=== PATIENT | female | born 1985 | race Asian ===

== ENCOUNTER 2022-05-23 13:44 | Inpatient (IN) ==
[2022-05-23] MEDS ORDERED: OXYTOCIN 30 UNITS/500 ML BAG IV PRN ×2 (14:14)
[2022-05-23] MEDS ORDERED: LIDOCAINE 1% LOCAL 20 ML VIAL INFIL PRN (14:14)
[2022-05-23 14:42] LABS: Hematocrit (blood only) 33.5 % (34.1-44.9); Hemoglobin 11.5 g/dl (12.0-16.0); Mean Corpuscular Hemoglobin 30.4 pg (25.0-34.0); Mean Corpuscular Hgb Conc 34.3 g/dL (32.0-36.0); Mean Corpuscular Volume 88.6 fL (80.0-100.0); Mean Platelet Volume 11.5 fL (9.4-12.3); Platelet Count 186 K/uL (130-400); RDW Coefficient of Variation 13.6 % (11.5-14.5); RDW Standard Deviation 44.7 fL (36.4-46.3); Red Blood Count 3.78 M/uL (3.93-5.22); White Blood Count 7.06 K/ul (4.8-10.8)
[2022-05-23] MEDS: LACTATED RINGER'S 1,000 ML IV PRN ×2 (15:10→19:02)
--- NOTE | 2022-05-23 16:25 | History & Physical Report ---
Date of Service May 23, 2022 Assessment & Plan (1) Post-term , 40-42 weeks of gestation: Plan: IUP at 40w6d with unfavorable cervix for IOL . cervical balloon placed and pitocin to start now as well. epidural when requested antcipate vaginal . Admission and Anticipated Discharge Date Admission Date: May 23, 2022 History of Present Illness Primary Care Provider: NO PCP Patient is a 36 yo female EDC 05/17/22 who presents at 40w 6d for IOL because of post term . was complicated by AMA status and diet controlled GDM. GBS- negative. (+) bloody show since exam yesterday and some ctns as well. baby has been very active. Allergies Allergy/AdvReac Type Severity Reaction Status Date / Time No Known Allergies Allergy Verified 05/22/22 14:51 Home Medications Medication Instructions Recorded Confirmed Type prenat.vits,antonino,ltd-[id number]-vytbj 1 tab PO DAILY 09/14/21 05/23/22 History acetone (urine) test (Ketone Urine #50 ea 12/15/21 05/22/22 Rx Test strips) blood sugar diagnostic (OneTouch #150 ea 12/15/21 05/22/22 Rx Verio test strips) blood-glucose meter (OneTouch #1 ea 12/15/21 05/22/22 Rx Verio Reflect Meter) lancets 33 gauge (OneTouch Delica #150 ea 12/15/21 05/22/22 Rx Lancets) ferrous sulfate 325 mg (65 mg 325 mg PO 3XWK 05/23/22 05/23/22 History iron) capsule,extended release Patient History Medical History (Updated 05/23/22 @ 16:23 by Nathalie Dennis MD, FACOG) Pneumonia Stomach ulcer Surgical History No significant past surgical history Family History (Updated 09/14/21 @ 10:55 by Colette ROGERS, LELO) Father Hypertension Denies family history of Ovarian cancer Prostate cancer Diabetes Breast cancer Lung cancer Cancer Social History (Updated 09/14/21 @ 10:58 by Colette ROGERS, RN) Smoking Status: Never smoker Hx Alcohol Use: No Hx Substance Use: No Preferred Language: Chinese Communication Ability: Effective Electronic Organ Technician Required: No Beliefs That Will Affect Care: None marital status: marital status details: Tate Carmona (36) [phone] Current Living Situation: Spouse Current Living Situation Comment: FOB. 1 dog. current occupational status: unemployed Other Information That Helps Us Care for You: No Feels Safe at Home: Yes Safety Concerns: Feels Safe At This Time Review of Systems All systems reviewed & are unremarkable except as noted in HPI & below Physical Exam Constitutional: WD/WN, vitals as above Psychiatric: A+Ox3, euthymic affect Genitourinary: OB Exam Abdomen: + vertex, + estimated weight (6-7 pounds) and + irregular contractions Manual OB Exam: + cervical dilation fingertip, + cervical effacement 70% and + station -2 cervical balloon placed under direct visualization. 40cc of water instilled into the balloon and then placed on traction and attached to left thigh. patient tolerated procedure well. Results & Data ([facility]) Vital Signs (Past 12 Hours) Vital Signs Temp Pulse Resp BP Pulse Ox 05/23/22 14:12 98.1 F 20 05/23/22 15:50 60 05/23/22 15:50 112/69 05/23/22 14:29 99 05/23/22 14:29 73 05/23/22 14:24 100 05/23/22 14:24 74 05/23/22 14:19 100 05/23/22 14:19 78 05/23/22 14:14 99 05/23/22 14:14 75 05/23/22 14:09 99 05/23/22 14:09 73 05/23/22 14:04 77 99 05/23/22 13:59 77 99 Code Status & VTE Plan VTE Prophylaxis Plan VTE Prophylaxis will be ordered: No Coding Level of Care Code None Diagnoses Post-term , 40-42 weeks of gestation O48.0 CPT Codes Misx Procedure Codes - 67967 Placement of cervical dilator: 68167 Placement of cervical dilator ([id number])
[2022-05-24] MEDS: LACTATED RINGER'S 1,000 ML IV PRN ×3 (02:41→10:40)
--- NOTE | 2022-05-24 02:52 | Obstetrical Progress Note ---
Date of Service May 24, 2022 Assessment & Plan (1) Post-term , 40-42 weeks of gestation: Admission and Anticipated Discharge Date Admission Date: May 23, 2022 Subjective cervical balloon now expelled- pitocin at 15 milliunits FHR tracing- category 1 /ctns Q2-3 minutes mild/moderate cervix exam-4-5/80/-2 AROM clear fluid epidural when requested Review of Systems Review of Systems: All systems reviewed & are unremarkable except as noted in HPI & below Results & Data ([facility]) Vital Signs (Past 12 Hours) Vital Signs Temp Pulse Resp BP 05/24/22 02:43 18 05/24/22 02:43 97.9 F 18 05/24/22 02:12 57 L 114/64 05/24/22 01:07 63 18 120/73 05/24/22 00:06 18 05/24/22 00:06 18 05/24/22 00:07 65 104/59 L 05/23/22 23:22 81 05/23/22 23:22 126/66 05/23/22 22:30 18 05/23/22 22:30 18 05/23/22 22:30 70 05/23/22 22:30 120/74 05/23/22 21:01 18 05/23/22 21:01 18 05/23/22 21:02 74 05/23/22 21:02 122/76 05/23/22 20:00 18 05/23/22 20:00 18 05/23/22 20:01 69 05/23/22 20:01 115/70 05/23/22 19:00 18 05/23/22 19:00 98.2 F 18 05/23/22 19:00 70 05/23/22 19:00 111/62 05/23/22 18:05 65 05/23/22 18:05 105/55 L 05/23/22 17:00 18 05/23/22 17:00 18 05/23/22 17:01 62 05/23/22 17:01 100/61 05/23/22 15:50 60 05/23/22 15:50 112/69 PG Care Time/CCT Total # of Minutes Spent Total Time Spent with Patient: Total time spent is greater than 50% in coordination of care (as documented) at patient's floor/unit and/or counseling patient: Coding Level of Care Code None Diagnoses Post-term , 40-42 weeks of gestation O48.0
[2022-05-24] MEDS ORDERED: LIDOCAINE 2%/EPINEPHRINE 1:200,000 20 ML SDV ONE (07:24)
[2022-05-24] MEDS ORDERED: ePHEDrine sulfate 50 MG/ML AMP ONE (07:24)
[2022-05-24] MEDS ORDERED: fentaNYL citrate 100 MCG/2 ML VIAL ONE (07:24)
[2022-05-24] MEDS ORDERED: BUPIVACAINE 0.25% 30 ML VIAL ONE (07:24)
[2022-05-24] MEDS ORDERED: SODIUM CHLORIDE 0.9% INJ 10 ML VIAL ONE (07:24)
[2022-05-24] MEDS ORDERED: fentaNYL 2MCG/ML ROPIVACAINE 1.25MG/ML 100 ML BAG EPI ONE (07:25)
[2022-05-24] MEDS ORDERED: ONDANSETRON INJ 2 MG/ML 2 ML VIAL IV PRN (07:53)
[2022-05-24] MEDS ORDERED: NALOXONE HCL 1 MG in SODIUM CHLORIDE 0.9% 1000ML 1,000 ML IV PRN ×2 (07:53→16:36)
[2022-05-24] MEDS ORDERED: NALBUPHINE HCL INJ 10 MG/ML AMP IV PRN ×2 (07:53→16:36)
[2022-05-24] MEDS ORDERED: diphenhydrAMINE 50 MG/ML VIAL IV PRN ×2 (07:53→16:36)
[2022-05-24] MEDS ORDERED: ePHEDrine sulfate 50 MG/ML AMP IV PRN ×2 (07:53→16:36)
[2022-05-24] MEDS ORDERED: PROMETHAZINE HCL 6.25 MG in SODIUM CHLORIDE 0.9% 50 ML IV PRN (07:53)
[2022-05-24] MEDS ORDERED: NALOXONE HCL 0.4 MG/1 ML VIAL/CARP IV PRN ×2 (07:53→16:36)
--- NOTE | 2022-05-24 07:53 | Anesthesiology Consultation ---
Date of Service May 24, 2022 Assessment & Plan Chart Review Chart Review: Patient NOT seen in Pre Admission Testing and Acceptable Risk for Labor Epidural Consults Requested none ASA ASA2 Proposed Anesthesia Anesthesia Type: Labor Epidural Risk / Benefits Reviewed With: PT / POA / Parent / Guardian, Accepts Plan and Informed Consent Obtained History Height/Weight Height: 5 ft 1 in Weight: 58.06 kg Allergies Allergy/AdvReac Type Severity Reaction Status Date / Time No Known Allergies Allergy Verified 05/22/22 14:51 Medications Home Medications Medication Instructions Recorded Confirmed Last Taken prenat.vits,antonino,sah-ytdw-yyikb 1 tab PO DAILY 09/14/21 05/23/22 05/21/22 acetone (urine) test (Ketone Urine #50 ea 12/15/21 05/22/22 Unknown Test strips) blood sugar diagnostic (OneTouch #150 ea 12/15/21 05/22/22 Unknown Verio test strips) blood-glucose meter (OneTouch #1 ea 12/15/21 05/22/22 Unknown Verio Reflect Meter) lancets 33 gauge (OneTouch Delica #150 ea 12/15/21 05/22/22 Unknown Lancets) ferrous sulfate 325 mg (65 mg 325 mg PO 3XWK 05/23/22 05/23/22 05/21/22 iron) capsule,extended release Active Medications Generic Name Dose Route Start Last Admin Trade Name Freq PRN Reason Stop Dose Admin Lactated Ringer's 1,000 mls @ 125 mls/hr 05/23/22 14:14 05/24/22 07:39 Lr IV 05/25/22 14:13 999 mls/hr .Q8H PRN Administration L&D Protocol Protocol Oxytocin 30 units in 500 mls @ 19 mls/hr 05/23/22 14:14 05/24/22 06:00 Pitocin IV 05/25/22 14:13 1.14 units/hr .Q24H PRN 19 mls/hr Labor Induction/Augmentation Titration Protocol 1.14 UNITS/HR Past Medical History Medical History (Updated 05/23/22 @ 16:23 by Nathalie Dennis MD, FACOG) Pneumonia Stomach ulcer Exercise / Class Metabolic Activity II 4-5 Yardwork/Stairs/Walk up hill Past Family History Family History (Updated 09/14/21 @ 10:55 by Colette ROGERS RN) Father Hypertension Denies family history of Ovarian cancer Prostate cancer Diabetes Breast cancer Lung cancer Cancer Past Surgical History Surgical History No significant past surgical history Past Anesthesia History No Hx of Anesthesia Complications and No Family Hx of Anesthesia Complications History of PONV No Hx of PONV and No Hx of Motion Sickness Social History Smoking Status: Never smoker Hx Alcohol Use: No Hx Substance Use: No substance use type: does not use Physical Exam Vital Signs Last Vital Signs Temp 37.0 C 05/24/22 07:12 Pulse 76 05/24/22 07:49 Resp 18 05/24/22 05:06 BP 120/70 05/24/22 07:04 Pulse Ox 98 05/24/22 07:49 ENMT Mouth: no dentition abnormality Thyromental Distance: > or= 3.5 Finger Breadths Mallampati Class: II Neck normal visual inspection Respiratory normal respiratory effort Auscultation: lungs clear to auscultation bilaterally Cardiovascular Rate/Rhythm: regular rate and regular rhythm Psychiatric Orientation: alert Testing Laboratory Results 05/23/22 14:27 05/24/22 05/24/22 05/23/22 06:02 02:11 22:20 POC Glucose 81 87 78
--- NOTE | 2022-05-24 10:13 | Labor Progress Brief Note ---
Date of Service May 24, 2022 Signed over a call patient was 6 cm at 7 AM I have reassessed her at 10 AM and she is 6 cm there is some significant caput palpated as well cervix 90% contractions are definitely spaced appropriately at this stage and her Pitocin is at 19 milliunits/min I will reassess in 2 hours I did discuss the possibility of failure to progress in if there is no change ongoing but we will give her the best opportunity to deliver vaginally Assessment & Plan Admission and Anticipated Discharge Date Admission Date: May 23, 2022 Results & Data ([facility]) Vital Signs (Past 12 Hours) Vital Signs Temp Pulse Resp BP Pulse Ox 05/24/22 07:30 20 05/24/22 10:09 79 98 05/24/22 10:04 77 99 05/24/22 09:59 79 99 05/24/22 10:00 79 108/58 L 05/24/22 09:54 78 98 05/24/22 09:49 79 97 05/24/22 09:44 98 05/24/22 09:44 79 05/24/22 09:44 78 99/54 L 05/24/22 09:39 98.4 F 83 18 98 05/24/22 09:34 87 96 05/24/22 09:29 76 99/55 L 96 05/24/22 09:24 84 96 05/24/22 09:19 82 96 05/24/22 09:14 96 05/24/22 09:14 75 05/24/22 09:14 77 101/60 05/24/22 09:09 75 96 05/24/22 09:04 76 96 05/24/22 09:00 18 05/24/22 09:00 18 05/24/22 09:03 78 102/57 L 05/24/22 08:59 79 97 05/24/22 08:54 74 97 05/24/22 08:49 70 96 05/24/22 08:44 68 97 05/24/22 08:39 71 97 05/24/22 08:34 74 97 05/24/22 08:25 98.4 F 05/24/22 08:29 74 114/79 98 05/24/22 08:24 75 98 05/24/22 08:23 74 101/56 L 05/24/22 08:19 80 106/55 L 99 05/24/22 08:14 84 99 05/24/22 08:13 83 114/55 L 05/24/22 08:11 79 105/57 L 05/24/22 08:09 98 05/24/22 08:09 83 05/24/22 08:09 80 107/55 L 05/24/22 08:07 80 104/54 L 05/24/22 08:04 75 99 05/24/22 08:05 71 105/55 L 05/24/22 08:03 83 109/60 05/24/22 08:00 78 112/56 L 05/24/22 07:59 79 98 05/24/22 07:54 78 98 05/24/22 07:55 75 112/63 05/24/22 07:49 76 98 05/24/22 07:44 72 99 05/24/22 07:39 87 98 05/24/22 07:34 86 99 05/24/22 07:12 98.6 F 05/24/22 07:29 82 100 05/24/22 07:04 78 120/70 05/24/22 06:01 84 118/64 05/24/22 05:06 18 05/24/22 05:06 98.8 F 18 05/24/22 05:07 75 121/70 05/24/22 04:01 65 113/66 05/24/22 03:28 75 136/79 05/24/22 02:43 18 05/24/22 02:43 97.9 F 18 05/24/22 02:12 57 L 114/64 05/24/22 01:07 63 18 120/73 05/24/22 00:06 18 05/24/22 00:06 18 05/24/22 00:07 65 104/59 L 05/23/22 23:22 81 05/23/22 23:22 126/66 05/23/22 22:30 18 05/23/22 22:30 18 05/23/22 22:30 70 05/23/22 22:30 120/74 Coding Level of Care Code None
[2022-05-24] MEDS: fentaNYL 2MCG/ML ROPIVACAINE 1.25MG/ML 100 ML BAG EPI PRN ×2 (13:08→14:17)
[2022-05-24] MEDS ORDERED: NURSING L&D Epidural Breakthrough Pain Update ONE (13:26)
--- NOTE | 2022-05-24 14:21 | Labor Progress Brief Note ---
Date of Service May 24, 2022 Cervix still 6 cm with worsening of the swelling of the cervix still this same station I checked her during contraction there is minimal change of the cervix at this stage she has been 7 hours with the same cervical dilation while we do not have an IUPC I feel contractions are adequate and certainly timing interval are adequate. She has had a prolonged induction process and I have actually recommended section for her at this stage for failure to progress I discussed the risks including the risks of infection injury to internal organs deep vein thrombosis and pulmonary embolus we discussed continuing labor as well I discussed the risks of this including potential infection and harm to the fetus and the need for emergency if we continue on too long the patient would like to discuss with her privately and they will do this again my recommendation is a section at this stage risk benefits and alternatives discussed in depth Assessment & Plan Admission and Anticipated Discharge Date Admission Date: May 23, 2022 Results & Data ([facility]) Vital Signs (Past 12 Hours) Vital Signs Temp Pulse Resp BP Pulse Ox 05/24/22 10:45 98.6 F 05/24/22 07:30 20 05/24/22 14:00 20 05/24/22 14:00 05/24/22 14:14 74 97 05/24/22 14:09 83 97 05/24/22 14:04 82 97 05/24/22 13:59 78 97 05/24/22 13:58 74 113/59 L 05/24/22 13:54 82 96 05/24/22 13:49 77 96 05/24/22 13:44 96 05/24/22 13:44 77 05/24/22 13:44 76 105/55 L 05/24/22 13:39 75 96 05/24/22 13:34 81 97 05/24/22 13:29 96 05/24/22 13:29 76 05/24/22 13:29 75 103/58 L 05/24/22 13:24 80 97 05/24/22 13:15 98.4 F 05/24/22 13:06 16 05/24/22 13:06 98.2 F 16 05/24/22 13:19 76 97 05/24/22 12:30 16 05/24/22 12:30 16 05/24/22 13:14 77 97 05/24/22 13:13 75 110/59 L 05/24/22 13:09 75 97 05/24/22 13:04 84 98 05/24/22 13:00 77 20 99/55 L 05/24/22 12:59 77 97 05/24/22 12:54 81 96 05/24/22 12:49 82 98 05/24/22 12:44 80 98 05/24/22 12:43 77 95/52 L 05/24/22 12:39 79 97 05/24/22 12:34 76 98 05/24/22 12:29 86 91/52 L 98 05/24/22 12:24 76 97 05/24/22 12:15 98.2 F 05/24/22 12:19 79 97 05/24/22 12:14 80 97 05/24/22 12:13 82 107/57 L 05/24/22 12:09 80 97 05/24/22 12:04 86 98 05/24/22 11:59 79 119/68 97 05/24/22 11:54 83 97 05/24/22 11:49 88 97 05/24/22 11:44 83 96 05/24/22 11:45 85 118/69 05/24/22 11:39 75 96 05/24/22 11:34 80 96 05/24/22 11:29 83 97 05/24/22 11:28 82 120/69 05/24/22 11:24 76 96 05/24/22 11:19 76 96 05/24/22 11:14 79 97 05/24/22 11:13 73 105/59 L 05/24/22 11:09 86 97 05/24/22 11:04 78 97 05/24/22 10:59 78 97 05/24/22 11:00 78 18 109/57 L 05/24/22 10:55 98.6 F 05/24/22 10:54 85 97 05/24/22 10:49 72 98 05/24/22 10:44 73 98 05/24/22 10:43 70 119/68 05/24/22 10:39 81 99 05/24/22 10:34 85 98 05/24/22 10:29 82 98 05/24/22 10:28 79 118/67 05/24/22 10:24 82 98 05/24/22 10:19 80 98 05/24/22 10:14 87 97 05/24/22 10:13 82 114/64 05/24/22 10:09 79 98 05/24/22 10:04 77 99 05/24/22 09:59 79 99 05/24/22 10:00 79 18 108/58 L 05/24/22 09:54 78 98 05/24/22 09:49 79 97 05/24/22 09:44 98 05/24/22 09:44 79 05/24/22 09:44 78 99/54 L 05/24/22 09:39 98.4 F 83 18 98 05/24/22 09:34 87 96 05/24/22 09:29 76 99/55 L 96 05/24/22 09:24 84 96 05/24/22 09:19 82 96 05/24/22 09:14 96 05/24/22 09:14 75 05/24/22 09:14 77 101/60 05/24/22 09:09 75 96 05/24/22 09:04 76 96 05/24/22 09:00 18 05/24/22 09:00 18 05/24/22 09:03 78 102/57 L 05/24/22 08:59 79 97 05/24/22 08:54 74 97 05/24/22 08:49 70 96 05/24/22 08:44 68 97 05/24/22 08:39 71 97 05/24/22 08:34 74 97 05/24/22 08:25 98.4 F 05/24/22 08:29 74 114/79 98 05/24/22 08:24 75 98 05/24/22 08:23 74 101/56 L 05/24/22 08:19 80 106/55 L 99 05/24/22 08:14 84 99 05/24/22 08:13 83 114/55 L 05/24/22 08:11 79 105/57 L 05/24/22 08:09 98 05/24/22 08:09 83 05/24/22 08:09 80 107/55 L 05/24/22 08:07 80 104/54 L 05/24/22 08:04 75 99 05/24/22 08:05 71 105/55 L 05/24/22 08:03 83 109/60 05/24/22 08:00 78 112/56 L 05/24/22 07:59 79 98 05/24/22 07:54 78 98 05/24/22 07:55 75 112/63 05/24/22 07:49 76 98 05/24/22 07:44 72 99 05/24/22 07:39 87 98 05/24/22 07:34 86 99 05/24/22 07:12 98.6 F 05/24/22 07:29 82 100 05/24/22 07:04 78 120/70 05/24/22 06:01 84 118/64 05/24/22 05:06 18 05/24/22 05:06 98.8 F 18 05/24/22 05:07 75 121/70 05/24/22 04:01 65 113/66 05/24/22 03:28 75 136/79 05/24/22 02:43 18 05/24/22 02:43 97.9 F 18 Coding Level of Care Code None
[2022-05-24] MEDS ORDERED: ceFAZolin 2000MG 2,000 MG/15 ML SYR IV SCH (14:45)
[2022-05-24] MEDS ORDERED: LACTATED RINGER'S 1,000 ML IV SCH ×2 (14:45→16:30)
[2022-05-24] MEDS ORDERED: CITRIC ACID/SODIUM CITRATE 15 ML UDC ONE (14:56)
[2022-05-24] MEDS ORDERED: OXYTOCIN 10 UNITS/ML VIAL ONE (15:13)
[2022-05-24] MEDS ORDERED: MoRPHine SULFATE PF 1 MG/ML 10 ML AMP/VIAL ONE (15:13)
[2022-05-24] MEDS ORDERED: KETOROLAC 30 MG/ML VIAL ONE (15:13)
[2022-05-24] MEDS ORDERED: ONDANSETRON INJ 2 MG/ML 2 ML VIAL ONE (15:13)
[2022-05-24] MEDS ORDERED: OXYTOCIN 10 UNITS/ML 10ML VIAL ONE ×3 (15:39)
[2022-05-24 16:17] LABS: Base Excess Cord Arterial Bld -6.1 mEq/L (-9-1.8); Base Excess Cord Venous Blood -6.9 mEq/L (-7.7-1.9); CO2 Cord Arterial Blood 47 mmHg (39.1-73.5); Cord Venous Blood HCO3 19 mmol/L (18.4-26.8); Cord Venous Blood PCO2 36 mmHg (30.4-57.2); Cord Venous Blood PO2 28 mmHg (14.1-43.3); Cord Venous Blood pH 7.32 (7.20-7.44); HCO3 Cord Arterial Blood 21 mmol/L (19.7-28.5); O2 Saturation Cord Venous Bld < 60.0 % (<68); Oxygen Sat Cord Arterial Blood < 60.0 % (<60); PO2 Cord Arterial Blood 23 mmHg (4.1-31.7); pH Cord Arterial Blood 7.26 (7.1-7.38)
[2022-05-24] MEDS ORDERED: KETOROLAC 30 MG/ML VIAL IV PRN ×2 (16:23→16:36)
[2022-05-24] MEDS ORDERED: MAGNESIUM HYDROXIDE SUSP 30 ML UDC PO PRN ×2 (16:23→20:41)
[2022-05-24] MEDS ORDERED: SENNA 8.6 MG TAB PO PRN ×2 (16:23→20:41)
[2022-05-24] MEDS ORDERED: IBUPROFEN 600 MG TAB PO PRN (16:23)
[2022-05-24] MEDS ORDERED: HYDROCORTISONE ACETATE 25 MG SUPP PR PRN ×2 (16:23→20:41)
[2022-05-24] MEDS ORDERED: DIPHTHERIA/TETANUS/PERTUSSIS 0.5 ML SYR/VIAL IM ONE ×2 (16:23→20:41)
[2022-05-24] MEDS ORDERED: MEPERIDINE HCL 50 MG/ML CARP IV PRN (16:23)
[2022-05-24] MEDS ORDERED: oxyCODONE/ACETAMINOPHEN 5mg/325mg TAB PO PRN (16:23)
[2022-05-24] MEDS ORDERED: BENZOCAINE 20% AER SPR 82.5 GM CAN EXT PRN ×2 (16:23→20:41)
--- NOTE | 2022-05-24 16:24 | Operative Report ---
PG Post Operative Report Pre & Post Diagnosis Operation Date: 05/24/22 14:45 <No data on this case meets the specified criteria> I identified the patient and participated in the time-out.: Yes Procedure Operation Date: 05/24/22 14:45 Actual Procedures p Section in LD with live female child at 1554(Not Applicable) - Prudencio Whitifeld MD, FACOG Surgeon Prudencio Whitfield MD, FACOG Hand Tube Winder Dr. Lieberman Estimated Blood Loss 500 Findings Consistent with Post-Op Diagnosis Specimens cord gases, blood Description of Procedure Regional anesthetic had been given by anesthesia patient was prepped and draped with a leftward tilt preoperative antibiotics had been given in appropriate timing by anesthesiology. Note she did have an epidural however this was not enough of a block so a spinal was then performed by anesthesia and this was adequate Once the prep was allowed to fully dry timeout was performed. Pickups with teeth were used to test the incision area was found to be adequate for incision as the patient did not feel sharp pain. Scalpel was used to make a Pfannenstiel incision on the lower abdomen. We then cut through the subcutaneous fat down to the level of the anterior rectus sheath fascia this was cut in the midline and then extended laterally with the curved Brown scissors. At this stage we then placed 2 Annia clamps on the anterior aspect of the fascia. Using the curved Brown's we are able to dissect the fascia superiorly away from the rectus muscles. Care was taken to maintain hemostasis. Annia clamps were then placed to the inferior aspect of the anterior sheath of the fascia. Fascia was then dissected away from the rectus muscles inferiorly towards the pubic bone. A Annia was then placed in the midline both inferiorly and superiorly. This was to allow exposure by retraction rectus muscles were in the midline with were then able to cut through the peritoneum and then enter the peritoneal cavity. Opening was enlarged to allow exposure of the peritoneal cavity both superiorly and inferiorly. Once adequate space was obtained a bladder retractor was placed to expose the lower segment Metzenbaums were used to dissect the bladder flap inferiorly away from the uterus. This was done sharply bladder retractor was then repositioned to expose the lower segment of the uterus Fresh scalpel was used to make a low transverse incision on the uterus. Uterus was then entered bluntly with the operators finger, membranes ruptured and the opening was enlarged using the operators fingers bluntly pulling superiorly and inferiorly to allow exposure. Thick meconium was noted there was no nuchal cord should be noted the adnexa are within normal limits Baby was delivered by first flexion of the head elevation of the head out of the pelvis and then pressure by the physical therapist assistant on the maternal abdomen. Baby's head was then delivered mouth and then nares were suctioned and then using gentle traction the baby was fully delivered. Live vigorous infant. Fluid was clear cord clamped and cut cord gases obtained cord blood obtained baby handed to pediatrics. Placenta removed was removed with traction we ensure the entire placenta was removed with a moist lap sponge into the uterus Uterus was then exteriorized. IV Pitocin had been started by anesthesia tone improved there were no extensions the uterus was then closed using 0 Monocryl in a 2 layer closure the first layer closed in a running locked fashion from left to right and then a second closure from left to right in a running nonlocked fashion. At this stage hemostasis was excellent. Uterus was placed back in the peritoneal cavity with suction irrigation out and inspection of the uterus at this stage revealed excellent hemostasis Retractors were removed urine color was clear at this stage of the case we inspected the rectus muscles they were hemostatic fascia was closed with 0 Vicryl subcutaneous fat was irrigated and closed with 3-0 Vicryl skin closed with 4-0 subcuticular Monocryl I attest to the content of the Intraoperative Record and any orders documented therein. Any exceptions are noted below. OB Procedure Charges 82671
[2022-05-24] MEDS ORDERED: OXYTOCIN 20 UNITS in LACTATED RINGER'S 1,000 ML IV SCH (16:30)
--- NOTE | 2022-05-24 16:35 | Anesthesia Procedure Note ---
Date of Service May 24, 2022 Anesthesia Post Epidural Note Vital Signs Vital Signs: Temp Pulse Resp BP Pulse Ox 36.9 C 100 H 20 115/53 L 98 05/24/22 13:15 05/24/22 16:33 05/24/22 14:00 05/24/22 16:33 05/24/22 16:28 Pain Intensity Abdomen: Pain Intensity: 4 Notes Mental Status: alert / awake / arousable Nausea / Vomiting: adequately controlled Pain: adequately controlled Airway Patency, RR, SpO2: stable & adequate BP & HR: stable & adequate Hydration State: stable & adequate Neuraxial Anesthesia: was administered and sensory block is resolving Anesthetic Complications: no major complications apparent and Pt Satisfied with anesthetic care Epidural: Removed without complications and With tip intact
[2022-05-24] MEDS ORDERED: MEPERIDINE HCL 25 MG/ML CARP/VIAL IV PRN (16:36)
[2022-05-24] MEDS ORDERED: MoRPHine SULFATE PF 1 MG/ML 10 ML AMP/VIAL INT SPINAL ONE (16:36)
[2022-05-24] MEDS ORDERED: LACTATED RINGER'S 500 ML IV PRN (16:36)
[2022-05-24] MEDS ORDERED: NALOXONE HCL 0.08 MG in SYRINGE 1.8 ML IV PRN (16:36)
[2022-05-24] MEDS ORDERED: HYDROmorphone INJ 0.5 MG/0.5 ML SYR IV PRN (16:36)
[2022-05-24] MEDS ORDERED: MoRPHine SULFATE 2 MG/ML CARP IV PRN (16:36)
--- NOTE | 2022-05-24 16:39 | Anesthesiology Progress Note ---
Date of Service May 24, 2022 Anesthesia Post Procedure Vital Signs Vital Signs: Temp Pulse Resp BP Pulse Ox 05/24/22 10:45 37.0 C 05/24/22 07:30 20 05/24/22 16:33 98 05/24/22 16:33 97 H 05/24/22 16:33 100 H 115/53 L 05/24/22 16:28 97 H 98 05/24/22 15:09 78 98 05/24/22 15:04 90 97 05/24/22 14:59 88 97 05/24/22 14:58 77 117/59 L 05/24/22 14:54 82 97 05/24/22 14:49 74 97 05/24/22 14:44 77 119/59 L 96 05/24/22 14:39 75 97 05/24/22 14:34 78 98 05/24/22 14:29 72 122/66 97 05/24/22 14:24 77 97 05/24/22 14:19 77 97 05/24/22 14:00 20 05/24/22 14:00 20 05/24/22 14:14 74 97 05/24/22 14:09 83 97 05/24/22 14:04 82 97 05/24/22 13:59 78 97 05/24/22 13:58 74 113/59 L 05/24/22 13:54 82 96 05/24/22 13:49 77 96 05/24/22 13:44 96 05/24/22 13:44 77 05/24/22 13:44 76 105/55 L 05/24/22 13:39 75 96 05/24/22 13:34 81 97 05/24/22 13:29 96 05/24/22 13:29 76 05/24/22 13:29 75 103/58 L 05/24/22 13:24 80 97 05/24/22 13:15 36.9 C 05/24/22 13:06 16 05/24/22 13:06 36.8 C 16 05/24/22 13:19 76 97 05/24/22 12:30 16 05/24/22 12:30 16 05/24/22 13:14 77 97 05/24/22 13:13 75 110/59 L 05/24/22 13:09 75 97 05/24/22 13:04 84 98 05/24/22 13:00 77 20 99/55 L 05/24/22 12:59 77 97 05/24/22 12:54 81 96 05/24/22 12:49 82 98 05/24/22 12:44 80 98 05/24/22 12:43 77 95/52 L 05/24/22 12:39 79 97 05/24/22 12:34 76 98 05/24/22 12:29 86 91/52 L 98 05/24/22 12:24 76 97 05/24/22 12:15 36.8 C 05/24/22 12:19 79 97 05/24/22 12:14 80 97 05/24/22 12:13 82 107/57 L 05/24/22 12:09 80 97 05/24/22 12:04 86 98 05/24/22 11:59 79 119/68 97 05/24/22 11:54 83 97 05/24/22 11:49 88 97 05/24/22 11:44 83 96 05/24/22 11:45 85 118/69 05/24/22 11:39 75 96 05/24/22 11:34 80 96 05/24/22 11:29 83 97 05/24/22 11:28 82 120/69 05/24/22 11:24 76 96 05/24/22 11:19 76 96 05/24/22 11:14 79 97 05/24/22 11:13 73 105/59 L 05/24/22 11:09 86 97 05/24/22 11:04 78 97 05/24/22 10:59 78 97 05/24/22 11:00 78 18 109/57 L 05/24/22 10:55 37.0 C 05/24/22 10:54 85 97 05/24/22 10:49 72 98 05/24/22 10:44 73 98 05/24/22 10:43 70 119/68 05/24/22 10:39 81 99 05/24/22 10:34 85 98 05/24/22 10:29 82 98 05/24/22 10:28 79 118/67 05/24/22 10:24 82 98 05/24/22 10:19 80 98 05/24/22 10:14 87 97 05/24/22 10:13 82 114/64 05/24/22 10:09 79 98 05/24/22 10:04 77 99 05/24/22 09:59 79 99 05/24/22 10:00 79 18 108/58 L 05/24/22 09:54 78 98 05/24/22 09:49 79 97 05/24/22 09:44 98 05/24/22 09:44 79 05/24/22 09:44 78 99/54 L 05/24/22 09:39 36.9 C 83 18 98 05/24/22 09:34 87 96 05/24/22 09:29 76 99/55 L 96 05/24/22 09:24 84 96 05/24/22 09:19 82 96 05/24/22 09:14 96 05/24/22 09:14 75 05/24/22 09:14 77 101/60 05/24/22 09:09 75 96 05/24/22 09:04 76 96 05/24/22 09:00 18 05/24/22 09:00 18 05/24/22 09:03 78 102/57 L 05/24/22 08:59 79 97 05/24/22 08:54 74 97 05/24/22 08:49 70 96 05/24/22 08:44 68 97 05/24/22 08:39 71 97 05/24/22 08:34 74 97 05/24/22 08:25 36.9 C 05/24/22 08:29 74 114/79 98 05/24/22 08:24 75 98 05/24/22 08:23 74 101/56 L 05/24/22 08:19 80 106/55 L 99 05/24/22 08:14 84 99 05/24/22 08:13 83 114/55 L 05/24/22 08:11 79 105/57 L 05/24/22 08:09 98 05/24/22 08:09 83 05/24/22 08:09 80 107/55 L 05/24/22 08:07 80 104/54 L 05/24/22 08:04 75 99 05/24/22 08:05 71 105/55 L 05/24/22 08:03 83 109/60 05/24/22 08:00 78 112/56 L 05/24/22 07:59 79 98 05/24/22 07:54 78 98 09/15/22 07:55 75 112/63 05/24/22 07:49 76 98 05/24/22 07:44 72 99 05/24/22 07:39 87 98 05/24/22 07:34 86 99 05/24/22 07:12 37.0 C 05/24/22 07:29 82 100 05/24/22 07:04 78 120/70 05/24/22 06:01 84 118/64 05/24/22 05:06 18 05/24/22 05:06 37.1 C 18 05/24/22 05:07 75 121/70 05/24/22 04:01 65 113/66 05/24/22 03:28 75 136/79 05/24/22 02:43 18 05/24/22 02:43 36.6 C 18 05/24/22 02:12 57 L 114/64 05/24/22 01:07 63 18 120/73 05/24/22 00:06 18 05/24/22 00:06 18 05/24/22 00:07 65 104/59 L 05/23/22 23:22 81 05/23/22 23:22 126/66 05/23/22 22:30 18 05/23/22 22:30 18 05/23/22 22:30 70 05/23/22 22:30 120/74 05/23/22 21:01 18 05/23/22 21:01 18 05/23/22 21:02 74 05/23/22 21:02 122/76 05/23/22 20:00 18 05/23/22 20:00 18 05/23/22 20:01 69 05/23/22 20:01 115/70 05/23/22 19:00 18 05/23/22 19:00 36.8 C 18 05/23/22 19:00 70 05/23/22 19:00 111/62 05/23/22 18:05 65 05/23/22 18:05 105/55 L 05/23/22 17:00 18 05/23/22 17:00 18 05/23/22 17:01 62 05/23/22 17:01 100/61 Pain Intensity Abdomen: Pain Intensity: 4 Transfer of Care Handoff Completed per policy Notes Mental Status: alert / awake / arousable Nausea / Vomiting: adequately controlled Pain: adequately controlled Airway Patency, RR, SpO2: stable & adequate BP & HR: stable & adequate Hydration State: stable & adequate Neuraxial Anesthesia: was administered and sensory block is resolving Anesthetic Complications: no major complications apparent and Pt Satisfied with anesthetic care
[2022-05-24] MEDS ORDERED: SODIUM CHLORIDE 0.9% 1000ML 1,000 ML IV SCH (16:45)
[2022-05-24] MEDS ORDERED: DC INTRASPINAL MORPHINE SCH (16:45)
[2022-05-24] MEDS ORDERED: NO NARCOTICS OR SEDATIVES SCH (16:45)
[2022-05-24] MEDS ORDERED: SIMETHICONE 80 MG CHEW PO SCH (17:00)
[2022-05-24] MEDS ORDERED: DOCUSATE SODIUM 100 MG CAP PO SCH (21:00)
[2022-05-24] MEDS: SIMETHICONE 80 MG CHEW PO SCH (21:17)
[2022-05-24] MEDS: DOCUSATE SODIUM 100 MG CAP PO SCH (21:17)
[2022-05-25] MEDS: OXYTOCIN 20 UNITS in LACTATED RINGER'S 1,000 ML IV SCH (01:42)
[2022-05-25] MEDS ORDERED: CITRIC ACID/SODIUM CITRATE 15 ML UDC PO SCH (06:00)
[2022-05-25 06:30] LABS: Basophils # (auto) 0.03 K/uL (0-0.2); Basophils % (auto) 0.2 %; Eosinophils # (auto) 0.02 K/uL (0-0.50); Eosinophils % (auto) 0.1 %; Hematocrit (blood only) 26.9 % (34.1-44.9); Hemoglobin 9.4 g/dl (12.0-16.0); Immature Granulocytes # (auto) 0.06 K/uL (0.00-0.02); Immature Granulocytes % (auto) 0.4 %; Lymphocytes # (auto) 1.31 K/uL (1.2-3.4); Lymphocytes % (auto) 8.9 %; Mean Corpuscular Hemoglobin 30.8 pg (25.0-34.0); Mean Corpuscular Hgb Conc 34.9 g/dL (32.0-36.0); Mean Corpuscular Volume 88.2 fL (80.0-100.0); Mean Platelet Volume 11.1 fL (9.4-12.3); Monocytes # (auto) 0.85 K/uL (0.24-0.82); Monocytes % (auto) 5.8 %; Neutrophils # (auto) 12.45 K/uL (1.4-6.5); Neutrophils % (auto) 84.6 %; Platelet Count 154 K/uL (130-400); RDW Coefficient of Variation 13.8 % (11.5-14.5); RDW Standard Deviation 45.1 fL (36.4-46.3); Red Blood Count 3.05 M/uL (3.93-5.22); White Blood Count 14.72 K/ul (4.8-10.8)
--- NOTE | 2022-05-25 07:12 | Obstetrical Progress Note ---
Date of Service <Samy CarpioSue MioDO - Last Filed: 05/25/22 07:12> May 25, 2022 Assessment & Plan <Samy LiebermanDO - Last Filed: 05/25/22 07:12> (1) Encounter for care and examination after delivery: (2) Status post section: Plan - Feels well today. - Will continue to advance diet, remove Bernstein, and get patient up and moving. - Patient has no past gas or had a BM but has not eaten food in a long time. No concerns on ab examination. Will continue to monitor but no intervention needed at this time. - Pain well controlled with ibuprofen 600mg Q4H PRN - Routine care -- OOB, ambulation, diet progression as tolerated - After discharge will have 6 week follow-up with Dr. Whitfield <Prudencio Whitfield MD, FACOG - Last Filed: 05/25/22 07:19> (1) Encounter for care and examination after delivery: (2) Status post section: Subjective <Samy CarpioSue Lieberman DO - Last Filed: 05/25/22 07:12> Ambulation: limited ambulation Voiding: bernstein catheter in place Passing Gas:: No Diet Tolerance:: clear liquids Lochia:: Small Feeding Type:: breast feeding Current Pain Level(1-10): 0 Patient is a 36 y/o female who is POD #1 following delivery at 40 weeks 6 days. She reports feeling well overall this morning. No abdominal cramping & 0/10 pain well managed on analgesics. Bernstein in place. Tolerating m eals overnight and able to ambulate some. Has not pass gas or had a bowel movement. Has some persistent lochia with some improvement this morning. Currently breast feeding. Review of Systems Denies fever, chills, sweats Denies shortness of breath, difficulty breathing, chest pain, palpitations, chest pressure. Denies breast pain. Denies dysuria. Denies headache or changes in vision. Physical Exam <Samy CarpioSue Lieberman DO - Last Filed: 05/25/22 07:12> General: Alert, oriented. No acute distress. Cardiac: Regular rate and rhythm, no murmurs/rubs/gallops. Respiratory: Clear to auscultation bilaterally a/p, no wheezes/rales/rhonchi. No increased work of breathing. Symmetrical chest rise. No respiratory distress. Abdomen: Soft, nontender, nondistended. Bowel sounds present. Uterus: Uterine fundus firm, palpable below umbilicus. Lower Extremities: No lower extremity edema or swelling. No deep calf pain. Edwar's negative bilaterally. Results & Data ([facility]) <Samy Lieberman DO - Last Filed: 05/25/22 07:12> Vital Signs (Past 12 Hours) Vital Signs Temp Pulse Resp BP Pulse Ox O2 Del Method 05/25/22 06:50 16 98 05/25/22 05:50 16 97 05/25/22 04:50 16 97 05/25/22 03:50 16 98 05/25/22 02:50 16 97 05/25/22 01:50 16 99 05/25/22 00:50 16 98 05/25/22 03:39 37.8 C H 88 18 99/61 L 99 Room Air 05/24/22 23:50 17 99 05/24/22 22:00 18 98 05/24/22 21:00 18 99 05/24/22 20:00 18 98 05/24/22 22:53 37 C 77 18 95/60 L 98 Room Air <Prudencio Whitfield MD, FACOG - Last Filed: 05/25/22 07:19> Co-Signing Physician Notes Resident Physician Supervision Note: I was present with Dr. Lieberman during the history and exam. I discussed the case with the resident and agree with the findings and plan as documented in the note. Any exceptions or clarifications are listed here: [None] Documented By: Prudencio Whitfield MD, FACOG Resident Activity Tracking <Samy Lieberman DO - Last Filed: 05/25/22 07:12> Resident Involvement: Resident Care Provided Care Provided: OB Delivery
[2022-05-25] MEDS: SIMETHICONE 80 MG CHEW PO SCH ×4 (07:34→20:59)
[2022-05-25] MEDS: DOCUSATE SODIUM 100 MG CAP PO SCH ×2 (07:34→20:59)
[2022-05-25] MEDS: PRENATAL VITAMIN 1 TAB PO SCH (07:34)
[2022-05-25] MEDS: FERROUS SULFATE 325 MG TAB PO SCH (07:34)
[2022-05-25] MEDS ORDERED: FERROUS SULFATE 325 MG TAB PO SCH (08:00)
[2022-05-25] MEDS ORDERED: PRENATAL VITAMIN 1 TAB PO SCH (08:00)
[2022-05-25] MEDS ORDERED: MEPERIDINE HCL 50 MG/ML CARP IV PRN (10:36)
[2022-05-25] MEDS ORDERED: diphenhydrAMINE 50 MG/ML VIAL IV PRN ×2 (10:36)
[2022-05-25] MEDS ORDERED: diphenhydrAMINE Capsule 25 MG CAP PO PRN ×2 (10:36)
[2022-05-25] MEDS ORDERED: PROMETHAZINE HCL 25 MG in SODIUM CHLORIDE 0.9% 50 ML IV PRN (10:36)
[2022-05-25] MEDS ORDERED: KETOROLAC 30 MG/ML VIAL IV PRN ×2 (10:36)
[2022-05-25] MEDS ORDERED: ONDANSETRON INJ 2 MG/ML 2 ML VIAL IV PRN ×2 (10:36)
[2022-05-25] MEDS ORDERED: oxyCODONE/ACETAMINOPHEN 5mg/325mg TAB PO PRN (10:36)
[2022-05-25] MEDS: oxyCODONE/ACETAMINOPHEN 5mg/325mg TAB PO PRN ×2 (11:07→17:44)
[2022-05-25] MEDS: IBUPROFEN 600 MG TAB PO PRN ×2 (11:07→17:43)
[2022-05-25] MEDS ORDERED: bisacodyL 5 MG TABEC PO SCH ×2 (20:00)
[2022-05-26] MEDS: oxyCODONE/ACETAMINOPHEN 5mg/325mg TAB PO PRN ×4 (01:07→18:34)
[2022-05-26] MEDS: IBUPROFEN 600 MG TAB PO PRN ×4 (01:07→18:34)
--- NOTE | 2022-05-26 07:18 | Obstetrical Progress Note ---
Date of Service <Samy CarpioSue Lieberman DO - Last Filed: 05/26/22 07:19> May 26, 2022 Assessment & Plan <Samy CarpioSue Lieberman DO - Last Filed: 05/26/22 07:19> (1) Encounter for care and examination after delivery: (2) Status post section: Plan - Feels well today. Eating well, voiding well, ambulating well. - Pain well controlled with [ibuprofen 600mg Q4H PRN] - Routine care -- OOB, ambulation, diet progression as tolerated - After discharge will have 6 week follow-up with Dr. Whitfield - Most likely D/C tomorrow but if patient feels good throughout the day and has no issues may be D/C tonight. <Jane Smiley MD - Last Filed: 05/26/22 07:48> (1) Encounter for care and examination after delivery: (2) Status post section: Subjective <Samyryan Lieberman DO - Last Filed: 05/26/22 07:19> Ambulation: ambulating normally Voiding: no voiding problems Passing Gas:: Yes Diet Tolerance:: regular diet Lochia:: Small Feeding Type:: breast feeding Current Pain Level(1-10): 0 Patient is a 36 y/o female who is POD #2 following delivery at 40.6 weeks. She reports feeling well overall this morning. No abdominal cramping & 0/10 pain well managed on analgesics. Voiding well. Tolerating meals overnight and able to ambulate some. Able to pass gas. Has some persistent lochia with some improvement this morning. Currently breast feeding. Review of Systems Denies fever, chills, sweats Denies shortness of breath, difficulty breathing, chest pain, palpitations, chest pressure. Denies breast pain. Denies dysuria. Denies headache or changes in vision. Physical Exam <Samyryan Lieberman DO - Last Filed: 05/26/22 07:19> General: Alert, oriented. No acute distress. Cardiac: Regular rate and rhythm, no murmurs/rubs/gallops. Respiratory: Clear to auscultation bilaterally a/p, no wheezes/rales/rhonchi. No increased work of breathing. Symmetrical chest rise. No respiratory distress. Abdomen: Soft, nontender, nondistended. Bowel sounds present. Uterus: Uterine fundus firm, palpable below umbilicus. Lower Extremities: No lower extremity edema or swelling. No deep calf pain. Edwar's negative bilaterally. Results & Data ([facility]) <Samy Lieberman DO - Last Filed: 05/26/22 07:19> Vital Signs (Past 12 Hours) Vital Signs Temp Pulse Pulse Resp BP O2 Del Method 05/26/22 01:00 36.7 C 66 14 94/59 L Room Air 05/25/22 20:50 36.6 C 71 71 16 95/59 L Room Air <Jane Smiley MD - Last Filed: 05/26/22 07:48> Co-Signing Physician Notes Resident Physician Supervision Note: I interviewed and examined the patient. Discussed with Dr. Lieberman and agree with findings and plan as documented in the note. Any exceptions or clarifications are listed here: POD2 s/p pCS, doing well. Unsure if desires dc home today or tomorrow, ok for today if desires Documented By: Jane Smiley MD Resident Activity Tracking <Samy Lieberman DO - Last Filed: 05/26/22 07:19> Resident Involvement: Resident Care Provided Care Provided: OB Delivery
[2022-05-26] MEDS: OXYTOCIN 20 UNITS in LACTATED RINGER'S 1,000 ML IV SCH (07:27)
[2022-05-26 07:36] LABS: Hematocrit (blood only) 27.4 % (34.1-44.9); Hemoglobin 9.3 g/dl (12.0-16.0)
[2022-05-26] MEDS: FERROUS SULFATE 325 MG TAB PO SCH (07:43)
[2022-05-26] MEDS: SIMETHICONE 80 MG CHEW PO SCH ×4 (07:43→20:08)
[2022-05-26] MEDS: DOCUSATE SODIUM 100 MG CAP PO SCH ×2 (07:43→20:08)
[2022-05-26] MEDS: PRENATAL VITAMIN 1 TAB PO SCH (07:43)
[2022-05-26] MEDS ORDERED: bisacodyL 10 MG SUPP PR PRN ×2 (16:23→20:41)
[2022-05-26] MEDS: LACTATED RINGER'S 1,000 ML IV SCH ×2 (21:37→21:38)
[2022-05-27] MEDS: IBUPROFEN 600 MG TAB PO PRN ×4 (03:02→18:07)
[2022-05-27] MEDS: oxyCODONE/ACETAMINOPHEN 5mg/325mg TAB PO PRN ×4 (03:03→18:08)
[2022-05-27] MEDS: SIMETHICONE 80 MG CHEW PO SCH ×3 (07:28→18:07)
[2022-05-27] MEDS: FERROUS SULFATE 325 MG TAB PO SCH (07:28)
[2022-05-27] MEDS: PRENATAL VITAMIN 1 TAB PO SCH (07:28)
[2022-05-27] MEDS: DOCUSATE SODIUM 100 MG CAP PO SCH (07:29)
--- NOTE | 2022-05-27 07:51 | Obstetrical Progress Note ---
Date of Service May 27, 2022 Assessment & Plan (1) Encounter for care and examination after delivery: Recovered well, stable for d/c home now. Instructions reviewed with patient and FOB. They note she is still needing percocet and wants Rx sent to pharmacy. (2) Status post section: Plan Copied from yesterday: - Feels well today. Eating well, voiding well, ambulating well. - Pain well controlled with [ibuprofen 600mg Q4H PRN] - Routine care -- OOB, ambulation, diet progression as tolerated - After discharge will have 6 week follow-up with Dr. Whitfield - Most likely D/C tomorrow but if patient feels good throughout the day and has no issues may be D/C tonight. Subjective Ambulation: ambulating normally Voiding: no voiding problems Passing Gas:: Yes Diet Tolerance:: regular diet Lochia:: Small Feeding Type:: breast feeding (And bottle feeding) Physical Exam Constitutional WD/WN, vitals as above Eyes PERRL, conjunctivae normal, anicteric sclerae Neck normal visual inspection Respiratory normal respiratory effort and able to speak in complete sentences; no respiratory distress and no labored breathing Cardiovascular Rate/Rhythm: regular rate and regular rhythm Extremities: no edema Chest (Breasts) Chest: normal inspection of chest Gastrointestinal (Abdomen) Inspection/Auscultation: abdomen normal to inspection Soft, postgravid C/D/I with steri strips Psychiatric A+Ox3, euthymic affect Genitourinary OB Exam Abdomen: + fundal height Fundus: + firm and + relation to umbilicus (fundus just below umbilicus); not tender Results & Data ([facility]) Vital Signs (Past 12 Hours) Vital Signs Temp Pulse Resp BP Pulse Ox O2 Del Method 05/27/22 03:05 97.3 F L 65 18 102/64 98 Room Air
[2022-05-27] MEDS ORDERED: PERCOCET 5/325MG HOMEPACK PO ONE (14:54)
--- NOTE | 2022-05-27 14:57 | Communication Note ---
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 I attempted to re-send, and find that [facility] (pdmp system) is not working properly and "times out" before accepting Rx validation despite multiple attempts. Tried to call pharmacy to verbally Rx and find that the pharmacy they wished to use is now closed. Offered homepack. If further Rx is needed the office can be contacted for Rx after workweek begins.
== END 2022-05-27 19:03 | disposition home or self-care (01) | DRG 788 ==
LOC: 4S1 13:44 → 4E2 05-24 19:04